=== PATIENT | male | born 1950 | race Caucasian/White ===

== ENCOUNTER → 2016-08-03 | Outpatient (CLI) | payer OTHER | LOC: CIMAGING 12:54 | PROVIDERS: ATTEND Family Medicine | DX: R06.02 Shortness of breath (principal); J06.9 Acute upper respiratory infection, unspecified; R93.1 Abnormal findings on diagnostic imaging of heart and coronary circulation | CPT/HCPCS: 71020-PO ==

== ENCOUNTER → 2017-10-31 | Outpatient (CLI) | payer OTHER | LOC: BHFA 14:00 | PROVIDERS: ATTEND Internal Medicine Interventional Cardiology | DX: I71.9 Aortic aneurysm of unspecified site, without rupture (principal) ==

== ENCOUNTER → 2017-12-12 | Outpatient (CLI) | payer OTHER | LOC: CIMAGING 12:44 | PROVIDERS: ATTEND Family Medicine | DX: K76.0 Fatty (change of) liver, not elsewhere classified (principal); R16.0 Hepatomegaly, not elsewhere classified; K83.8 Other specified diseases of biliary tract; K80.20 Calculus of gallbladder without cholecystitis without obstruction; R18.8 Other ascites; L29.9 Pruritus, unspecified; L30.9 Dermatitis, unspecified | CPT/HCPCS: 76705-PO ==

== ENCOUNTER → 2017-12-29 | Outpatient (CLI) | payer OTHER ==
[~2017-12-29] MED LIST: GADOBUTROL 10 ML VIAL IVP ONE
== END ==
LOC: FIMAGING 15:13
PROVIDERS: ATTEND Family Medicine
DX: R74.8 Abnormal levels of other serum enzymes (principal); R16.2 Hepatomegaly with splenomegaly, not elsewhere classified; K76.89 Other specified diseases of liver
CPT/HCPCS: 74183; A9585

== ENCOUNTER 2018-08-05 12:53 | Emergency (ER) | payer OTHER ==
[2018-08-05] MEDS ORDERED: ASPIRIN 81 MG CHEWABLE TAB PO ONE (13:23)
--- NOTE | 2018-08-05 13:26 | EDPHY ---
H & P Time Seen by Provider: 08/05/18 13:17 HPI/ROS: CHIEF COMPLAINT: Chest pain HISTORY OF PRESENT ILLNESS: The patient is a 68-year-old male who presents emergency department with chest pain. Patient states his pain started around 11 30. He describes it as a pressure across his chest. It does not radiate. His pain is moderate. He had mild shortness of breath but that has resolved. He denies diaphoresis. No nausea vomiting. No leg pain or swelling. No recent travel. The patient had similar symptoms over 10 years ago and had an angiocath which was negative. REVIEW OF SYSTEMS: 10 systems were reveiwed and are negative with the exception of the elements mentioned in the history of present illness. Past Medical/Surgical History: Includes hypertension Past surgical history: Includes appendectomy Family history: Includes a father with coronary artery disease and MA. The patient does not know his father's age when he had his heart attack. Smoking Status: Former smoker Physical Exam: Vitals noted. Hypertensive GENERAL: Well-appearing, in no acute distress, alert. HEENT: Eyes normal to inspection, normal pharynx, no signs of dehydration. NECK: Normal, supple. RESPIRATORY: Clear to auscultation bilaterally, no rales, rhonchi or wheezing. CVS: Regular rate and rhythm, no rubs, murmurs, or gallops. ABDOMEN: Soft, nontender, nondistended, no organomegaly. BACK: Normal to inspection, no CVA tenderness. SKIN: Normal color, no rash, warm, dry. No pallor. EXTREMITIES: No pedal edema, no calf tenderness, no Homans sign or cords, no joint swelling. NEURO/PSYCH: Alert and oriented, slightly anxious appearing, normal motor sensory exam. No obvious cranial nerve deficit. Constitutional: Initial Vital Signs Temperature (C) 36.6 C 08/05/18 12:57 Heart Rate 98 08/05/18 12:57 Respiratory Rate 18 08/05/18 12:57 Blood Pressure 165/88 H 08/05/18 12:57 O2 Sat (%) 94 08/05/18 12:57 O2 Delivery Mode Room Air Allergies/Adverse Reactions: omeprazole [From Prilosec] Allergy (Verified 08/05/18 12:54) omeprazole magnesium [From Prilosec] Allergy (Verified 08/05/18 12:54) Sulfa (Sulfonamide Antibiotics) Allergy (Verified 08/05/18 12:56) Home Medications: Medication Instructions Recorded Amlodipine Besylate 10/07/15 Diuretic 10/07/15 Medical Decision Making ED Course/Re-evaluation: In the emergency department I discussed possible etiologies with the patient. I answered all his questions. IV was placed. Laboratory studies, EKG and chest x-ray were ordered. Patient was given aspirin 324 mg orally. EKG: Sinus rhythm at 91. Normal axis. Normal intervals. No ST elevation. Flipped T waves IIIK and AVF. Q wave aVF. White count is normal at 9. Hematocrit is normal at 42. Platelet count is 133. Patient's troponin is negative. The patient was noted to have an elevated total bilirubin of 3.0. His alk-phos was also elevated. His potassium was low at 3.1. I discussed the results with the patient. I answered all his questions. On recheck he stated his chest pain had improved. I recommended the patient be admitted for further elevation. I explained this in depth with the patient. I felt he needed further evaluation for his reported chest pain. I also felt he should be further evaluated for his elevated liver function tests. The patient refused admission. Patient did not want further evaluation at this time. He requested discharged from the emergency department and did not want to be admitted. I discussed the pros and cons of this decision. The patient had capacity to make this decision. I informed his decision-making process. Patient was given warnings prior to leaving. He is given follow-up with [facility]. [facility] referral was sent in the system. Patient was also given follow-up with a yacht rigger. Patient currently is followed by yacht rigger but cannot recall his name. At this time he was given follow-up with the on-call yacht rigger. Differential Diagnosis: My differential includes but not limited to ACS, acute MA, dissection, aneurysm , myocarditis, pericarditis, pulmonary embolus, pneumonia, bronchitis, pleurisy - Data Points Laboratory Results: 08/05/18 08/05/18 13:24 13:17 POC Sodium 141 mEq/L mEq/L (135-145) POC Potassium 3.1 mEq/L L mEq/L (3.3-5.0) POC Chloride 102.0 mEq/L mEq/L (97-110) POC Total CO2 25 mEq/L mEq/L (22-31) POC BUN 13 mg/dL mg/dL (7-23) POC Creatinine 0.8 mg/dL mg/dL (0.7-1.3) POC Glucose 123 mg/dL H mg/dL (70-100) POC Calcium 9.8 mg/dL mg/dL (8.5-10.4) POC Total Bilirubin 3.0 mg/dL H mg/dL (0.1-1.4) POC AST 134 IU/L H IU/L (17-59) POC ALT 70 IU/L IU/L (21-72) POC Alk Phosphatase 189 IU/L H IU/L (38-126) POC Troponin I 0.00 ng/mL ng/mL (0.00-0.08) POC Total Protein 8.3 g/dL H g/dL (6.3-8.2) POC Albumin 4.2 g/dL g/dL (3.5-5.0) Medications Given: Discontinued Medications Aspirin (Aspirin) 324 mg PO EDNOW ONE Stop: 08/05/18 13:24 Last Admin: 08/05/18 13:31 Dose: 324 mg Point of Care Test Results: CBC CBC Collection Date 08/05/18 CBC Collection Time 12:35 WBC 9.74 RBC 4.49 HGB 14.8 HCT 42.8 PLT 133 Neut # 5.12 Neut 52.6 LYMPH # 3.37 LYMPH 34.6 MCV 95.3 Chemistry 08/05/18 08/05/18 13:24 13:17 POC Sodium 141 mEq/L mEq/L (135-145) POC Potassium 3.1 mEq/L L mEq/L (3.3-5.0) POC Chloride 102.0 mEq/L mEq/L (97-110) POC Total CO2 25 mEq/L mEq/L (22-31) POC BUN 13 mg/dL mg/dL (7-23) POC Creatinine 0.8 mg/dL mg/dL (0.7-1.3) POC Glucose 123 mg/dL H mg/dL (70-100) POC Calcium 9.8 mg/dL mg/dL (8.5-10.4) POC Total Bilirubin 3.0 mg/dL H mg/dL (0.1-1.4) POC AST 134 IU/L H IU/L (17-59) POC ALT 70 IU/L IU/L (21-72) POC Alk Phosphatase 189 IU/L H IU/L (38-126) POC Troponin I 0.00 ng/mL ng/mL (0.00-0.08) POC Total Protein 8.3 g/dL H g/dL (6.3-8.2) POC Albumin 4.2 g/dL g/dL (3.5-5.0) Departure - Departure Disposition: Home, Routine, Self-Care Clinical Impression: Elevated liver function tests Chest pain Qualifiers: Chest pain type: unspecified Qualified Code(s): R07.9 - Chest pain, unspecified Condition: Good Instructions: Chest Pain (ED) Additional Instructions: You need close follow-up with [facility]. Contact information was given. A referral was sent, but I recommend that you call 1st thing tomorrow morning to make an appointment. You should also be seen by a yacht rigger. If you could not make an appointment with your current yacht rigger you been given contact information for the on-call yacht rigger. Return immediately with increasing chest pain, shortness of breath, nausea, vomiting, sweating or any other concerns. Referrals: [facility] [Provider Group] - 1 day without fail Edmond Simms MD [Medical Doctor] - 5-7 days, call for appt.
--- NOTE | 2018-08-05 14:17 | CPEKG ---
Test Reason : OPEN Blood Pressure : / mmHG Vent. Rate : 091 BPM Atrial Rate : 090 BPM P-R Int : 203 ms QRS Dur : 090 ms QT Int : 387 ms P-R-T Axes : -03 004 -02 degrees QTc Int : 477 ms Sinus rhythm Probable left atrial enlargement Probable anterior infarct, old Borderline T abnormalities, inferior leads Confirmed by Tosin Callahan ([id number] on 08/05/2018 2:16:55 PM Referred By: PHYSICIAN ED Confirmed By:Tosin Callahan
[2018-08-05 14:36] VITALS: BP 137/62
== END 2018-08-05 14:34 | disposition home or self-care (01) ==
LOC: CED 12:53
DX: R07.9 Chest pain, unspecified (principal)
CPT/HCPCS: 71046-PO; 80053-ER; 84484-ER; 85025-QW-ER; 99285-ER

== ENCOUNTER → 2018-08-09 | Outpatient (CLI) | payer OTHER | LOC: CIMAGING 08:47 ==